=== PATIENT | male | born 1960 | race Caucasian/White ===

== ENCOUNTER 2022-06-12 08:28 | Outpatient (CLI) | payer BC, SELFPAY ==
[2022-06-12 13:41] LABS: Chloride* 103 mmol/L (96-114); Potassium* 4.4 mmol/L (3.6-5.1); Sodium* 139 mmol/L (135-149)
[2022-06-12 13:43] LABS: Estimated Glomerular Filt Rate 87 ml/min
[2022-06-12 13:44] LABS: Blood Urea Nitrogen* 19 mg/dL (7-30); Carbon Dioxide* 28 mmol/L (20-32); Glucose* 111 mg/dL (60-115); Triglycerides* 107 mg/dL (40-149)
[2022-06-12 13:45] LABS: Calcium* 9.4 mg/dL (8.4-10.6); HDL Cholesterol* 72 mg/dL (>=40)
[2022-06-12 14:53] LABS: PSA Screen* 0.64 ng/mL (0.10-4.00)
[2022-06-13 18:57] LABS: Cholesterol* 253 mg/dL (90-199); LDL Cholesterol Calculated 160 mg/dL (<100)
== END 2022-06-12 08:29 | disposition home or self-care (01) ==
PROVIDERS: PCP Family Medicine; Visit Provider Family Medicine
DX: Z00.00 Encounter for general adult medical examination without abnormal findings (principal); E78.5 Hyperlipidemia, unspecified; Z12.5 Encounter for screening for malignant neoplasm of prostate; Z13.0 Encounter for screening for diseases of the blood and blood-forming organs and certain disorders involving the immune mechanism
CPT/HCPCS: 80048; 80061; 84153

== ENCOUNTER 2023-09-18 08:23 | Outpatient (CLI) | payer BC, SELFPAY | END 2023-09-18 08:24 | disposition home or self-care (01) | PROVIDERS: PCP Family Medicine; Visit Provider Family Medicine | DX: E78.5 Hyperlipidemia, unspecified (principal); Z80.42 Family history of malignant neoplasm of prostate; Z12.5 Encounter for screening for malignant neoplasm of prostate; Z13.1 Encounter for screening for diabetes mellitus | CPT/HCPCS: 80053; 80061; G0103 ==

== ENCOUNTER 2025-03-23 10:09 | Outpatient (CLI) | payer BC, SELFPAY | END 2025-03-23 10:10 | disposition home or self-care (01) | PROVIDERS: PCP Family Medicine; Visit Provider Family Medicine | DX: E78.2 Mixed hyperlipidemia (principal); Z13.1 Encounter for screening for diabetes mellitus; Z12.5 Encounter for screening for malignant neoplasm of prostate | CPT/HCPCS: 80048; 80061; G0103 ==